=== PATIENT | male | born 1955 | race Caucasian/White ===

== ENCOUNTER 2017-10-02 09:57 | Outpatient (CLI) | payer OTHER ==
--- NOTE | 2017-10-02 11:56 | RAD ---
BARIUM SWALLOW ESOPHAGRAM: HISTORY: Gastric lap band, possibly malposition. COMPARISON: None. EXPOSURE: 0.9 minutes 40.362 Gy per cm2. FINDINGS: Portable supine abdomen radiograph demonstrates a gastric lap band in the left upper quadrant. The patient was administered thin barium. The esophagus has an overall course and caliber. There is delay in passage of contrast. Residual contrast is still noted on the supine and upright post proce dure radiographs. Tertiary contractions are identified. The gastric lap band appears to be appropri ately oriented. Contrast does pass through the gastric lap band and into the stomach. IMPRESSION: Gastric lap band in left upper quadrant. There is delay in passage with tertiary contractions noted. POS: [facility]
== END 2017-10-02 09:58 | disposition home or self-care (01) ==
LOC: RAD 09:57
PROVIDERS: ATTEND Specialist
DX: K40.20 Bilateral inguinal hernia, without obstruction or gangrene, not specified as recurrent (principal); Z98.84 Bariatric surgery status
CPT/HCPCS: 74220

== ENCOUNTER 2017-10-26 08:45 | Outpatient (CLI) | payer OTHER ==
[2017-10-26 09:58] LABS: #Eosinphils 0.2 thou/uL (0.0-0.7); #Lymphocytes 1.4 thou/uL (1.20-3.40); #Monocytes 0.4 thou/uL (0.11-0.59); #Neutrophils 4.1 thou/uL (1.40-6.50); %Basophils 0.3 % (0.0-1.0); %Eosinophils 2.9 % (0.0-10.0); %Lymphocytes 22.2 % (21.0-51.0); %Monocytes 6.4 % (0.0-10.0); %Neutrophils 68.2 % (42.0-75.0); Hemoglobin 14.5 g/dL (14.0-18.0); Mean Corpuscular HGB CONC 34.9 g/dL (32.0-36.0); Mean Corpuscular Hemoglobin 32.6 pg (27.0-31.0); Mean Corpuscular Volume 93.4 fL (78.0-98.0); Mean Platelet Volume 7.8 fL (7.4-10.4); Platelet Count 175 thou/uL (130-400); RBC Distribution Width 12.2 % (11.5-14.5); Red Blood Cell (RBC) Count 4.43 mill/uL (4.70-6.10); White Blood Cell (WBC) Count 6.1 thou/uL (4.8-10.8)
[2017-10-26 10:11] LABS: Anion Gap 11 mmol/L (10-20); BUN (Urea Nitrogen) 10 mg/dL (8.4-25.7); Calc. Creatinine Clearance 0 mL/min (70-130); Calcium 9.3 mg/dL (7.8-10.44); Carbon Dioxide 29 mmol/L (23-31); Chloride 102 mmol/L (98-107); Estimated GFR-MDRD Greater than 90; Glucose 93 mg/dL (80-115); Potassium 3.5 mmol/L (3.5-5.1); Sodium 138 mmol/L (136-145)
== END 2017-10-26 08:46 | disposition home or self-care (01) ==
LOC: LABBT 08:45
PROVIDERS: ATTEND Specialist
DX: Z01.818 Encounter for other preprocedural examination (principal); K40.20 Bilateral inguinal hernia, without obstruction or gangrene, not specified as recurrent
CPT/HCPCS: 80048; 85025; 93005; 93010

== ENCOUNTER 2017-11-19 06:03 | Day surgery (SDC) | payer OTHER ==
[2017-10-26 09:30] VITALS: BMI 35.7
[2017-11-19] MEDS ORDERED: Fentanyl 100 MCG/2 ML VIAL ONE (06:28)
[2017-11-19] MEDS ORDERED: CEFAZOLIN/Water 2 GM/20 ML SYRINGE ONE (06:43)
[2017-11-19] MEDS ORDERED: Ketorolac Tromethamine 30 MG/ML VIAL ONE (06:43)
[2017-11-19] MEDS ORDERED: Fentanyl 250 MCG/5 ML VIAL ONE (06:48)
[2017-11-19] MEDS ORDERED: Bupivacaine/Epinephrine 0.25% 30 ML VIAL ONE ×2 (07:02→07:06)
[2017-11-19] MEDS ORDERED: Rocuronium Bromide 50 MG/5 ML VIAL ONE (09:16)
--- NOTE | 2017-11-20 13:36 | OP ---
DATE OF PROCEDURE: 11/19/2017 PREOPERATIVE DIAGNOSES: Bilateral inguinal hernia, umbilical hernia, unnecessary/undesired lap band. POSTOPERATIVE DIAGNOSES: Bilateral inguinal hernia, umbilical hernia, unnecessary/undesired lap band . PROCEDURE PERFORMED: Robotic bilateral inguinal hernia repair with large 3DMax mesh patch, umbilical hernia repair with 4.3 cm Ventralex mesh patch, laparoscopic removal of his lap band as well as the injection port. SURGEON: Foreign Cadet M.D. ANESTHESIA: General endotracheal. INDICATIONS: The patient is a 62-year-old white male. He has a history of a lap band placement rnoald ral years ago. This has not been adjusted in many years. He has recently been having increased symp tomatology associated with the band and presents requesting laparoscopic band removal. He additional ly has been found to have bilateral inguinal hernias that are progressively symptomatic and finally, he has an obvious bulging umbilical hernia for which I recommend repair under the same anesthetic. DESCRIPTION OF OPERATION: Informed consent was obtained. The patient was taken to the operating rochelle m where general endotracheal anesthesia obtained with the patient in supine position. Abdomen was pr epped with ChloraPrep and draped in sterile fashion. Local anesthetic was infiltrated using 0.25% Ma rcaine with epinephrine. A supraumbilical incision was created and dissection was carried through th e skin and subcutaneous tissue down to the umbilical hernia defect. A 12-mm port was passed through this defect. Pneumoperitoneum established with carbon dioxide up to a pressure of 15 mmHg. Under di rect vision, two separate 8 mm robotic ports were placed, one in the right abdomen, one in the left a bdomen. The one in the left was placed immediately adjacent to the port from his lap band. The robot was docked to the ports and the camera and the operation was continued from the robotic con sole. Examination reveals an obvious and fairly large indirect right inguinal hernia. There is smaller lef t inguinal hernia that is also present and also appears to be indirect. Attention was first turned t o the right side. A transverse peritoneal incision was created and preperitoneal dissection was guzman ied inferiorly. The pubic tubercle was dissected on the medial aspect. The iliopubic tract was diss ected laterally. I then dissected the hernia sac off the underlying cord structures. The patient waterman d a huge cord lipoma. This was carefully dissected away from the cord structures. A large 3DMax mesh patch was obtained, placed in the preperitoneal space. This was secured to surrou nding structures using 3 interrupted sutures of 2-0 Vicryl. One was placed in the pubic tubercle, on e to the anterior abdominal wall just lateral to the epigastric vessels and one was placed to the lat eral tail of the mesh patch. The peritoneum was then closed with a running suture of 3-0 Stratafix. The cord lipoma was brought out through the medial aspect of the incision and secured to the periton eum with a couple of the sutures. Attention was then turned to the left side. A mirror image incision and dissection was carried out. The patient did have a significantly smaller indirect inguinal hernia. He also had a huge cord lipo ma on the left, which was also dissected. The mesh was placed in a similar fashion and the peritoneu m again closed. The cord lipoma was brought out through the lateral aspect of the incision and secur ed again to the perineum. Of note, the patient was noted to have a mass, which is difficult for me to discern exactly what it w as in the left abdomen. I could not discern if this was part of the sigmoid colon or its mesentery. I felt that this would likely be best evaluated with a CT scan of the abdomen and pelvis, though I w ould recommend obtaining after his surgery during routine followup. The robot was then undocked and the operation was continued laparoscopically. I placed a 5 mm epigas tric incision as well as another 5 mm right lateral abdominal incision. The Alfredo retractor was used to retract the left lobe of the liver. There was scarring between the liver and the anterior aspect of the band and the stomach. The liver was mobilized off this using electrocautery. The scar tissue overlying the band was taken down with electrocautery. I continued the dissection until the band was mobilized. I did not take down the en tirety of the gastrogastric plication. At the point that the band was fully mobile, I unlatched the buckle and pulled the port out of the tract uneventfully. The tubing of the band was divided and the band itself was pulled out through the 12 mm port site at the umbilicus. The Alfredo retractor was removed. All ports and instruments removed under direct vision. Attenti on was turned to the umbilicus. The umbilicus was dissected off the underlying fascia and the fascia around the hernia was dissected. Preperitoneal dissection was carried out on the posterior aspect o f the hernia defect. A 4.3 cm patch was obtained and placed in the preperitoneal space. The tails w ere secured with 0 Prolene popoff superiorly and inferiorly. The lateral aspects were closed with in terrupted sutures of 0 Prolene. The umbilicus was secured down to the fascia with 2 interrupted sutu res of 3-0 Vicryl. The wound was then closed in layers with 3-0 and 4-0 Monocryl. Dermabond was leonardo madison externally. The other laparoscopic port sites were closed with 4-0 Monocryl suture and Dermabond was again placed. A compression dressing was created at the umbilicus using cotton balls and a Tega derm dressing. There were no complications with any portion of the procedure. The patient tolerated the procedure well and was taken to recovery room in stable condition.
== END 2017-11-19 14:22 | disposition home or self-care (01) ==
LOC: SDC 06:03
PROVIDERS: ATTEND Specialist
PROC: 0WUF0JZ Supplement Abdominal Wall with Synthetic Substitute, Open Approach (ICD-10-PCS; principal; 2017-11-19)
PROC: 0YUA4JZ Supplement Bilateral Inguinal Region with Synthetic Substitute, Percutaneous Endoscopic Approach (ICD-10-PCS; principal; 2017-11-19)
PROC: 0DP64CZ Removal of Extraluminal Device from Stomach, Percutaneous Endoscopic Approach (ICD-10-PCS; principal; 2017-11-19)
DX: K40.20 Bilateral inguinal hernia, without obstruction or gangrene, not specified as recurrent (principal); K42.9 Umbilical hernia without obstruction or gangrene; K95.09 Other complications of gastric band procedure; I10 Essential (primary) hypertension; F32.9 Major depressive disorder, single episode, unspecified; F41.9 Anxiety disorder, unspecified; Z79.82 Long term (current) use of aspirin; Z79.899 Other long term (current) drug therapy
CPT/HCPCS: C1781; J0131; J1885; J3010

== ENCOUNTER 2020-03-07 09:53 | Outpatient (CLI) | payer OTHER ==
--- NOTE | 2020-03-07 11:45 | RAD ---
RIGHT HIP 2 VIEWS: Date: 03/07/2020 HISTORY: Right hip pain, no injury. FINDINGS: There are some mild arthritic changes of the hip joint without a significant degree of joint space na rrowing. No fracture. IMPRESSION: Mild arthritic changes of the hip. POS: [facility]
== END 2020-03-07 09:54 | disposition home or self-care (01) ==
LOC: BICRAD 09:53
PROVIDERS: ATTEND Family Medicine
DX: M25.551 Pain in right hip (principal); M16.11 Unilateral primary osteoarthritis, right hip